=== PATIENT | female | born 1995 | race Caucasian/White ===

== ENCOUNTER 2018-08-07 21:13 | Emergency (ER) | payer BC ==
[2018-08-07 21:25] VITALS: BP 112/65
--- NOTE | 2018-08-07 21:42 | UC ---
Throat Pain/Nasal Alex HPI - HPI Summary HPI Summary: C/O nasal congestion with sinus pain and slight cough. No wheezing. Minimal sore throat. - History of Current Complaint Chief Complaint: UCGeneralIllness Stated Complaint: CONGESTION/EARS/HEADACHE Hx Obtained From: Patient ?: No Onset/Duration: Sudden Onset, Lasting Days - 2, Worse Since - today Severity: Moderate Pain Intensity: 0 Associated Signs & Symptoms: Positive: Sinus Discomfort, Nasal Discharge. Negative: Wheezing Related History: Seasonal Allergies - Allergies/Home Medications Allergies/Adverse Reactions: Allergies Allergy/AdvReac Type Severity Reaction Status Date / Time Penicillins Allergy Intermediate Rash Verified 08/07/18 21:26 Home Medications: Home Medications Norethindrone-E.estradiol-Iron [Blisovi Fe 1-20 Tablet] 1 tab PO DAILY 08/07/18 [History Confirmed 08/07/18] PMH/Surg Hx/FS Hx/Imm Hx Previously Healthy: Yes - Surgical History Surgical History: Yes Surgery Procedure, Year, and Place: tonsillectomy. ear tubes. left cataract. tumor/back benign - Family History Known Family History: Negative: Cardiac Disease, Hypertension, Diabetes - Social History Occupation: Student Lives: Dormitory/Roommates Alcohol Use: Occasionally Substance Use Type: None Smoking Status (MU): Never Smoked Tobacco Review of Systems All Other Systems Reviewed And Are Negative: Yes Constitutional: Positive: Chills ENT: Positive: Nasal Discharge, Sinus Pain/Tenderness Respiratory: Positive: Cough Is Patient Immunocompromised?: No Physical Exam Triage Information Reviewed: Yes Appearance: No Pain Distress, Well-Nourished, Ill-Appearing - mild Vital Signs: Initial Vital Signs Temp 98.7 F 08/07/18 21:21 Pulse 81 08/07/18 21:21 Resp 17 08/07/18 21:21 BP 112/65 08/07/18 21:21 Pulse Ox 100 08/07/18 21:21 Vital Signs Reviewed: Yes Eyes: Positive: Conjunctiva Inflamed - OU, mild ENT: Positive: Pharynx normal, Nasal congestion - with allergic changes, TMs normal, Sinus tenderness - frontal sinuses. Neck exam: Normal Respiratory Exam: Normal Cardiovascular Exam: Normal Musculoskeletal Exam: Normal Neurological Exam: Normal Psychological Exam: Normal Skin Exam: Normal Throat Pain/Nasal Course/Dx - Differential Dx/Diagnosis Differential Diagnosis/HQI/PQRI: Laryngitis, Otitis Media, Pharyngitis, URI Provider Diagnosis: Upper respiratory infection with cough and congestion, Acute sinusitis Discharge - Sign-Out/Discharge Documenting (check all that apply): Patient Departure All imaging exams completed and their final reports reviewed: No Studies - Discharge Plan Condition: Stable Disposition: HOME Prescriptions: Cefdinir [Cefdinir 300 MG CAP] 300 mg PO BID #20 capsule Patient Education Materials: Upper Respiratory Infection (ED), Sinusitis (ED), Cefdinir (By mouth) Referrals: No Primary Care Phys,NOPCP [Primary Care Provider] - - Billing Disposition and Condition Condition: STABLE Disposition: Home
== END 2018-08-07 21:56 | disposition home or self-care (01) ==
LOC: UCCORT 21:13
DX: J06.9 Acute upper respiratory infection, unspecified (principal); R05 Cough; R09.81 Nasal congestion; J01.90 Acute sinusitis, unspecified; Z88.0 Allergy status to penicillin
CPT/HCPCS: 99202; G0463